=== PATIENT | female | born 1990 | race Caucasian/White ===

== ENCOUNTER 2020-10-24 18:45 | Inpatient (IN) | payer OTHER ==
[~2020-10-24] VITALS: Ht 160 cm; Wt 104.5 kg
[~2020-10-24 18:45] MED LIST: DOCU-131 PO; IBUP-1222 PO; OXYC1TAB14 PO
[2020-10-24] MEDS ORDERED: TERBUTALINE 1 MG/ML, 1ML IVPush PRN (20:00)
[2020-10-24] MEDS ORDERED: LACTATED RINGERS 1,000 ML IV SCH ×2 (20:00→23:30)
[2020-10-24] MEDS ORDERED: OXYTOCIN 30U/ 0.9% NaCL 500ML 500 ML IV PRN (20:00)
[2020-10-24] MEDS ORDERED: CALCIUM CARBONATE 500 MG TAB.CHEW PO PRN (20:00)
[2020-10-24] MEDS ORDERED: OXYTOCIN 30U/ 0.9% NaCL 500ML 500 ML IV ONE (20:00)
[2020-10-24] MEDS ORDERED: ONDANSETRON 2MG/ML, 2ML IVPush PRN (20:00)
[2020-10-24] MEDS ORDERED: FENTANYL PF 100 MCG/2ML IVPush PRN (20:00)
[2020-10-24] MEDS ORDERED: FENTANYL PF 100 MCG/2ML IV PRN (20:00)
[2020-10-24] MEDS ORDERED: SODIUM CITRATE/CITRIC ACID 30 ML UDC PO PRN (20:00)
[2020-10-24] MEDS ORDERED: D5%-LACTATED RINGERS 1,000 ML IV SCH (20:00)
[2020-10-24] MEDS ORDERED: TERBUTALINE 1 MG/ML, 1ML SQ PRN (20:00)
[2020-10-24] MEDS ORDERED: PENICILLIN GK 5,000,000 UNITS in DEXTROSE 5% 100 ML IVPB ONE (20:00)
[2020-10-24] MEDS ORDERED: METOCLOPRAMIDE 5 MG/ML, 2ML IVPush PRN (20:00)
[2020-10-24] MEDS ORDERED: OXYTOCIN 30U/ 0.9% NaCL 500ML 500 ML ONE (20:30)
[2020-10-24] MEDS ORDERED: NEWBORN KIT ONE (20:30)
[2020-10-24 20:37] LABS: BASOPHILS % (AUTO) 1 % (0-1); EOSINOPHILS % (AUTO) 1 % (1-7); LYMPHOCYTES % (AUTO) 22 % (22-44); MEAN CORPUSCULAR HEMOGLOBIN 33.6 pg (27.0-34.8); MEAN CORPUSCULAR HGB CONC 34.5 g/dL (32.4-35.8); MEAN PLATELET VOLUME 7.1 fL (7.4-10.4); MONOCYTES % (AUTO) 8 % (2-9); NEUTROPHILS % (AUTO) 69 % (42-75); PLATELET COUNT 280 x10^3/uL (130-400); RED BLOOD COUNT 3.77 x10^6/uL (3.82-5.3); RED CELL DISTRIBUTION WIDTH 13.7 % (9.6-15.2)
[2020-10-24 20:59] VITALS: BP 104/59
[2020-10-24] MEDS ORDERED: FENTANYL/BUPIV./NS/PF 250 ML EPIDCONT ONE (23:00)
[2020-10-24] MEDS ORDERED: LIDOCAINE/PF 1.5% EPI 1:200K, 10 ML ONE (23:00)
[2020-10-24] MEDS ORDERED: FENTANYL/BUPIV./NS/PF 250 ML EPIDCONT SCH (23:30)
[2020-10-24] MEDS ORDERED: NALOXONE 0.4 MG/ML, 1ML IVPush PRN (23:30)
[2020-10-24] MEDS ORDERED: LACTATED RINGERS 1,000 ML IVBOLUS PRN (23:30)
[2020-10-24] MEDS ORDERED: EPHEDRINE 50 MG/ML, 1ML IVPush PRN (23:30)
[2020-10-25] MEDS ORDERED: PENICILLIN GK 2,500,000 UNITS in DEXTROSE 5% 100 ML IVPB SCH
[2020-10-25] MEDS ORDERED: MISOPROSTOL 200 MCG TABLET PR PRN (04:30)
[2020-10-25] MEDS ORDERED: TRANEXAMIC ACID 100 MG/ML, 10ML IV ONE (04:30)
[2020-10-25] MEDS ORDERED: OXYcodone/APAP 5/325MG TABLET PO PRN ×2 (04:30)
[2020-10-25] MEDS ORDERED: METHYLERGONOVINE 0.2 MG/ML IM PRN (04:30)
[2020-10-25] MEDS ORDERED: ONDANSETRON 2MG/ML, 2ML IV PRN (04:30)
[2020-10-25] MEDS: OXYTOCIN 30U/ 0.9% NaCL 500ML 500 ML IV SCH ×2 (04:30→14:30)
[2020-10-25] MEDS ORDERED: SIMETHICONE 80 MG CHEW TAB PO PRN (04:30)
[2020-10-25] MEDS ORDERED: CARBOPROST TROMETHAMINE 250 MCG/ML, 1ML IM PRN (04:30)
[2020-10-25 07:16] VITALS: BP 104/67
[2020-10-25] MEDS: DOCUSATE 100 MG CAPSULE PO PRN (09:25)
[2020-10-25] MEDS: PRENATAL VIT/IRON/FA 1 EACH TABLET PO SCH (09:25)
[2020-10-25 10:21] VITALS: BP 102/67
[2020-10-25] MEDS: IBUPROFEN 800 MG TABLET PO PRN (12:10)
[2020-10-25 12:32] LABS: BASOPHILS % (AUTO) 1 % (0-1); EOSINOPHILS % (AUTO) 1 % (1-7); LYMPHOCYTES % (AUTO) 16 % (22-44); MEAN CORPUSCULAR HEMOGLOBIN 33.1 pg (27.0-34.8); MEAN PLATELET VOLUME 7.2 fL (7.4-10.4); MONOCYTES % (AUTO) 9 % (2-9); NEUTROPHILS % (AUTO) 75 % (42-75); PLATELET COUNT 245 x10^3/uL (130-400); RED BLOOD COUNT 3.68 x10^6/uL (3.82-5.3); RED CELL DISTRIBUTION WIDTH 13.9 % (9.6-15.2)
[2020-10-25 14:40] VITALS: BP 111/73
[2020-10-25 21:00] VITALS: BP 118/76
[2020-10-26] VITALS: BP 99/68
[2020-10-26] MEDS: PRENATAL VIT/IRON/FA 1 EACH TABLET PO SCH (08:14)
[2020-10-26] MEDS: IBUPROFEN 800 MG TABLET PO PRN (08:14)
[2020-10-26] MEDS: DOCUSATE 100 MG CAPSULE PO PRN (08:14)
== END 2020-10-26 14:00 | disposition home or self-care (01) | DRG 807 ==
LOC: LDOP 18:45 → LDIP 20:39 → 2NW 10-25 06:05
PROVIDERS: ADMIT Obstetrics & Gynecology; ATTEND Obstetrics & Gynecology
PROC: 10E0XZZ Delivery of Products of Conception, External Approach (ICD-10-PCS; principal; 2020-10-25)
PROC: 0KQM0ZZ Repair Perineum Muscle, Open Approach (ICD-10-PCS; 2020-10-25)
DX: O99.824 Streptococcus B carrier state complicating childbirth (principal); Z37.0 Single live birth; Z20.822 Contact with and (suspected) exposure to COVID-19; O70.1 Second degree perineal laceration during delivery; Z3A.40 40 weeks gestation of pregnancy
CPT/HCPCS: 36415; 85025; 86592; 86850; 86900; 87635; G0378; J2540; J2590; J7120